=== PATIENT | male | born 1950 | race Hispanic/Latino ===

== ENCOUNTER 2017-03-13 23:56 | Emergency (ER) | payer MEDICARE, MEDICAID ==
[2017-03-14 01:12] LABS: #Basophils 0.1 thou/uL (0.0-0.2); #Eosinphils 0.1 thou/uL (0.0-0.7); #Lymphocytes 3.6 thou/uL (1.20-3.40); #Monocytes 0.5 thou/uL (0.11-0.59); #Neutrophils 4.7 thou/uL (1.40-6.50); %Basophils 1.1 % (0.0-1.0); %Eosinophils 0.7 % (0.0-10.0); %Lymphocytes 40.1 % (21.0-51.0); Hematocrit 49.5 % (42.0-52.0); Red Blood Cell (RBC) Count 5.31 mill/uL (4.70-6.10)
[2017-03-14 01:32] LABS: Anion Gap 11 mmol/L (10-20); BUN (Urea Nitrogen) 10 mg/dL (8.4-25.7); CK (CPK) 532 U/L (30-200); Calc. Creatinine Clearance 0 mL/min (70-130); Carbon Dioxide 25 mmol/L (23-31); Chloride 109 mmol/L (98-107); Estimated GFR-MDRD 90
--- NOTE | 2017-03-14 07:36 | CT ---
PRELIMINARY REPORT/[facility]/EMERGENCY AFTER HOURS PROCEDURE: EXAM: CT Head Without Intravenous Contrast CLINICAL HISTORY: 67 years old, male; Injury or trauma; Fall; Initial encounter; Abrasion; Not specified; Patient HX: Fall, unk time down, found @2029; Additional info: Patient uncooperative for exam TECHNIQUE: Axial computed tomography images of the head/brain without intravenous contrast. COMPARISON: No relevant prior studies available. FINDINGS: Brain: There is parenchymal atrophy. Scattered areas of hypoattenuation, likely chronic small vessel ischemic change, demyelination, or gliosis. Ventricles: Normal. Bones/joints: Normal. No acute fracture. Soft tissues: Normal. Vasculature: Atherosclerotic vascular calcifications. Sinuses: Ethmoid and right maxillary sinus disease. Mastoid air cells: Normal as visualized. No mastoid effusion. IMPRESSION: 1. No acute findings. 2. Non-acute findings are described above. Thank you for allowing us to participate in the care of your patient. Dictated and Authenticated by: Don Early MD 03/14/2017 1:25 AM Central Time ([place] \T\ [place]) FINAL REPORT EMERGENT AFTER HOURS CT OF BRAIN WITHOUT CONTRAST FINDINGS/IMPRESSION: I agree with the findings and impression given in the preliminary report per [facility] physician. There is no evidence of acute intracranial abnormality. POS: [facility]
--- NOTE | 2017-03-17 14:37 | EKG ---
Test Reason : FALL Blood Pressure : / mmHG Vent. Rate : 063 BPM Atrial Rate : 063 BPM P-R Int : 188 ms QRS Dur : 084 ms QT Int : 432 ms P-R-T Axes : 048 117 055 degrees QTc Int : 442 ms Normal sinus rhythm Right axis deviation Nonspecific T wave abnormality Abnormal ECG Confirmed by TRINA REILLY, HALEIGH ([id number]), market editor REGLA COPELAND ([id number]) on 03/17/2017 2:37:03 PM Referred By: Confirmed By:HALEIGH MENA MD
== END 2017-03-14 02:10 | disposition home or self-care (01) ==
LOC: ERS 23:56
DX: S00.01XA Abrasion of scalp, initial encounter (principal); F03.90 Unspecified dementia, unspecified severity, without behavioral disturbance, psychotic disturbance, mood disturbance, and anxiety; I10 Essential (primary) hypertension; F31.9 Bipolar disorder, unspecified; F20.9 Schizophrenia, unspecified; Z79.899 Other long term (current) drug therapy; W19.XXXA Unspecified fall, initial encounter
CPT/HCPCS: 36415; 70450; 80048; 82550; 85025; 93005